=== PATIENT | male | born 1960 | race Caucasian/White ===

== ENCOUNTER → 2018-03-07 | Outpatient (CLI) | payer OTHER ==
[~2018-03-07] MED LIST: CIPR-226 PO; OMEP40CA36 PO; PRED20TA PO; RANI-515 PO; TRAM50TA2 PO
--- NOTE | 2018-03-07 18:54 | Diagnostic Imaging Report ---
INDICATION: Back pain. TECHNIQUE: MRI of the thoracic spine obtained without IV contrast. COMPARISON: There is no prior study for comparison. FINDINGS: The thoracic vertebrae are normal in height and alignment. There is no space-occupying lesion in the marrow or marrow edema. Thoracic discs are normal in height. There is minimal disc bulging at T8-T9 without canal stenosis. Remaining disc levels are unremarkable. IMPRESSION: No space-occupying lesion in the marrow or marrow edema or cord lesion. Minimal disc bulging at T8-T9 without canal narrowing. Remaining levels are essentially unremarkable. The thoracic cord is normal in signal and thickness throughout. Dictated by: Dictated on workstation # [id number]
--- NOTE | 2018-03-07 19:15 | Diagnostic Imaging Report ---
INDICATION: Low back pain. TECHNIQUE: MRI lumbar spine obtained without IV contrast. FINDINGS: The lumbar vertebrae are normal in height and alignment. There is no space-occupying lesion in the marrow or marrow edema. There is a normal appearance of the conus medullaris and cauda equina. At L5-S1, there is minimal disc bulge, without canal or neural foraminal stenosis. At the remaining levels, no disc herniation or bulge or canal or neural foraminal stenosis was seen. Incidental note is made of multiple parapelvic cysts about the left kidney. Incidental note is made of a nerve root sheath cyst in the canal at the S2 level. IMPRESSION: Minimal disc bulging at L5-S1, without canal or neural foraminal stenosis. No marrow space edema or space-occupying lesion. There is no canal stenosis or neural foraminal narrowing at any level. There is an incidental nerve root sheath cyst in the canal at the S2 level. There are parapelvic cysts about the left kidney. Dictated by: Dictated on workstation # [id number]
== END ==
LOC: RAD 16:52
PROVIDERS: ATTEND Physician Assistant
DX: M54.6 Pain in thoracic spine (principal); R19.09 Other intra-abdominal and pelvic swelling, mass and lump
CPT/HCPCS: 72146; 72148

== ENCOUNTER → 2019-10-20 | Outpatient (CLI) | payer BC, OTHER ==
[~2019-10-20] MED LIST changes: +CATHETER FLUSH 10 ML SYR IV PRN; +HOLD METFORMIN - RECEIVED CONTRAST 20 ML VIAL IV SCH; +IOHEXOL 350 MG/ML 100 ML (OMNIPAQUE 350) VIAL IV ONE; +NS 100 ML (IVPB) BAG IV ONE; +OMEP40CA27 PO; -OMEP40CA36 PO; -RANI-515 PO; +RANI-609 PO
[2019-10-20 12:44] LABS: BUN/CREATININE RATIO 17; CREATININE SERUM 0.77 MG/DL (0.60-1.30); GFR ESTIMATED > 60
--- NOTE | 2019-10-20 13:45 | Diagnostic Imaging Report ---
PROCEDURE: CT chest with contrast only. TECHNIQUE: Multiple contiguous axial images were obtained through the chest after administration of intravenous contrast. Auto Exposure Controls were utilized during the CT exam to meet ALARA standards for radiation dose reduction. INDICATION: Cardiomegaly, chest pain. COMPARISON: Correlation is limited to overlapped images obtained during an abdominal CT on 06/26/2016. FINDINGS: The pain in the thoracic aorta is nonaneurysmal. There is no identifiable pulmonary arterial filling defect. No pleural or pericardial effusion. No focal pulmonary consolidation. No suspicious lung mass. No evidence for adenopathy. No acute soft tissue or osseous chest wall pathology. There is some mild biapical pleural-parenchymal scarring. Visualized upper abdomen demonstrates chronic left renal parapelvic cysts. Small cyst in the right hepatic lobe. No acute finding. IMPRESSION: No acute appearing abnormality. Dictated by: Dictated on workstation # [id number]
== END ==
LOC: RAD 12:12
PROVIDERS: ATTEND Nurse Practitioner Family
DX: I51.7 Cardiomegaly (principal)
CPT/HCPCS: 36415; 71260; 82565; 84520

== ENCOUNTER → 2019-11-22 | Outpatient (CLI) | payer BC ==
[~2019-11-22] MED LIST changes: -CATHETER FLUSH 10 ML SYR IV PRN; -HOLD METFORMIN - RECEIVED CONTRAST 20 ML VIAL IV SCH; -IOHEXOL 350 MG/ML 100 ML (OMNIPAQUE 350) VIAL IV ONE; -NS 100 ML (IVPB) BAG IV ONE
== END ==
LOC: CARD 14:18
PROVIDERS: ATTEND Nurse Practitioner Family
DX: R07.9 Chest pain, unspecified (principal); R06.02 Shortness of breath; E78.5 Hyperlipidemia, unspecified
CPT/HCPCS: 93306

== ENCOUNTER → 2022-09-30 | Outpatient (CLI) | payer BC ==
[~2022-09-30] MED LIST changes: -OMEP40CA27 PO; +OMEP40CA6 PO
== END | disposition home or self-care (01) ==
LOC: PREOP 05:36
PROVIDERS: ATTEND Surgery
DX: Z01.818 Encounter for other preprocedural examination (principal)